=== PATIENT | male | born 1955 | race Caucasian/White ===

== ENCOUNTER 2018-07-30 07:08 | Outpatient (RCR) ==
[2018-08-26 11:01] VITALS: BP 118/54
== END 2018-08-28 23:59 ==
LOC: PUL.REHAB 07:08
PROVIDERS: ATTEND Internal Medicine Pulmonary Disease
DX: Z94.2 Lung transplant status (principal); Z48.24 Encounter for aftercare following lung transplant

== ENCOUNTER 2018-08-29 07:09 | Outpatient (RCR) ==
[2018-09-25 10:45] VITALS: BP 128/58
== END 2018-09-25 23:59 ==
LOC: PUL.REHAB 07:09
PROVIDERS: ATTEND Internal Medicine Pulmonary Disease
DX: Z94.2 Lung transplant status (principal); Z48.24 Encounter for aftercare following lung transplant

== ENCOUNTER 2018-09-26 07:05 | Outpatient (RCR) ==
[2018-10-23 10:44] VITALS: BP 114/54
== END 2018-10-26 23:59 ==
LOC: PUL.REHAB 07:05
PROVIDERS: ATTEND Internal Medicine Pulmonary Disease
DX: Z94.2 Lung transplant status (principal); Z48.24 Encounter for aftercare following lung transplant

== ENCOUNTER 2018-10-27 10:03 | Outpatient (RCR) ==
[2018-11-12 11:58] VITALS: BP 124/54
== END 2018-11-25 23:59 ==
LOC: PUL.REHAB 10:03
PROVIDERS: ATTEND Internal Medicine Pulmonary Disease
DX: Z94.2 Lung transplant status (principal); Z48.24 Encounter for aftercare following lung transplant